=== PATIENT | female | born 1970 | race Caucasian/White ===

== ENCOUNTER 2017-08-22 09:45 | Emergency (ER) | payer OTHER ==
[~2017-08-22] VITALS: Ht 172.7 cm; Wt 72.7 kg
[~2017-08-22 09:45] MED LIST: BACTRIM DS1 TAB PO; NAPROSYN500 MG PO; ULTRAM50 MG PO
[2017-08-22] MEDS ORDERED: LEVOTHYROXIN50 MCG PO (10:22)
[2017-08-22] MEDS ORDERED: ALPRAZOLAM0.5 MG PO (10:22)
[2017-08-22 10:32] LABS: ANION GAP 17 (6-22 (CALC)); BUN 15 mg/dL (7-17); BUN/CREATININE RATIO 22 (12-20 (CALC)); CARBON DIOXIDE 24 mmol/l (22-30); CHLORIDE 104 mmol/l (95-108); CREATININE 0.7 mg/dL (0.5-1.0); GFR > 60 ML/MIN (>=60 (CALC)); GFR FOR AFR.AMER. > 60 ML/MIN (>=60 (CALC)); POTASSIUM 4.1 mmol/l (3.5-5.1); SODIUM 141 mmol/l (137-146)
[2017-08-22 10:33] LABS: HEMATOCRIT 43.1 % (37.0-47.0); HEMOGLOBIN 14.4 g/dl (12.0-16.0); IMMATURE GRANULOCYTES 0.2 % (0.0-1.0); MEAN CELL VOLUME 90.9 fL CALC (80.0-100.0); MEAN CORPUSCULAR HGB 30.4 pG CALC (26.0-32.0); MEAN CORPUSCULAR HGB CONC 33.4 g/L CALC (32.0-36.0); NEUT# 6.4 thou/uL (2.00-7.15); RED BLOOD COUNT 4.74 mill/uL (4.20-5.60); RED CELL DISTRI WIDTH 12.3 % (11.5-15.5)
[2017-08-22 13:28] VITALS: BP 102/69
== END 2017-08-22 14:00 | disposition home or self-care (01) | DRG 313 ==
LOC: ED 09:45 → ED-I 10:28 → ED 10:28 → ED-I 12:17 → ED 14:00
PROVIDERS: Family Medicine
DX: R07.9 Chest pain, unspecified (principal); F17.200 Nicotine dependence, unspecified, uncomplicated; R06.02 Shortness of breath; R53.1 Weakness
CPT/HCPCS: Q9967